=== PATIENT | male | born 1990 | race African-American/Black ===

== ENCOUNTER 2016-05-12 08:07 | Emergency (ER) | payer SELFPAY ==
[~2016-05-12] VITALS: Ht 185.4 cm; Wt 159.1 kg
[~2016-05-12 08:07] MED LIST: CIPROFLOXACN500 MG PO; METRONIDAZOL500 MG PO; NO HOME MEDS; PREVACID30 M2 OR; ULTRAM50 M1 PO; ZOFRAN ODT4 MG PO; ZOFRAN ODT8 MG PO; ZOFRAN4 MG/TAB PO
[2016-05-12 09:24] LABS: HEMATOCRIT 46.2 % (39.0-50.0); HEMOGLOBIN 15.1 g/dl (14.0-18.0); IMMATURE GRANULOCYTES 0.3 % (0.0-1.0); MEAN CORPUSCULAR HGB 27.5 pG CALC (26.0-32.0); MEAN CORPUSCULAR HGB CONC 32.7 g/L CALC (32.0-36.0); NEUT# 6.99 thou/uL (1.82-7.42); RED BLOOD COUNT 5.5 mill/uL (4.70-6.10); RED CELL DISTRI WIDTH 14.2 % (11.5-15.5)
[2016-05-12 09:33] LABS: ALBUMIN 4.5 g/dL (3.2-5.0); ALKALINE PHOSPHATASE 146 u/l (38-126); AMYLASE 62 u/l (30-110); ANION GAP 15 (6-22 (CALC)); BILIRUBIN, TOTAL 0.4 mg/dL (0.0-1.4); BUN 15 mg/dL (9-20); BUN/CREATININE RATIO 13 (12-20 (CALC)); CALCIUM 9.8 mg/dL (8.4-10.2); CARBON DIOXIDE 28 mmol/l (22-30); CHLORIDE 102 mmol/l (95-108); CREATININE 1.1 mg/dL (0.7-1.3); GFR > 60 ML/MIN (>=60 (CALC)); GFR FOR AFR.AMER. > 60 ML/MIN (>=60 (CALC)); GLUCOSE 123 mg/dL (75-110); LIPASE 135 u/l (23-300); POTASSIUM 4.1 mmol/l (3.5-5.1); SGOT/AST 28 u/l (17-59); SGPT/ALT 44 u/l (21-72); SODIUM 141 mmol/l (137-146); TOTAL PROTEIN 8.3 g/dL (6.3-8.2)
[2016-05-12] MEDS ORDERED: NEXIUM40 M1 PO (10:55)
[2016-05-12] MEDS ORDERED: ZOFRAN4 MG/TAB PO (10:55)
[2016-05-12 11:40] VITALS: BP 148/84
== END 2016-05-12 11:44 | disposition home or self-care (01) | DRG 392 ==
LOC: ED 08:07
PROVIDERS: Emergency Medicine
DX: R11.10 Vomiting, unspecified (principal); R19.7 Diarrhea, unspecified; R10.32 Left lower quadrant pain; R10.12 Left upper quadrant pain
CPT/HCPCS: Q9967

== ENCOUNTER 2021-03-27 09:14 | Emergency (ER) | payer SELFPAY ==
[~2021-03-27] VITALS: Ht 185.4 cm; Wt 163.6 kg
[~2021-03-27 09:14] MED LIST changes: +NEXIUM40 M1 PO
[2021-03-27] MEDS ORDERED: LOTRISONE EX (10:26)
[2021-03-27 10:27] LABS: HEMATOCRIT 47.4 % (39.0-50.0); HEMOGLOBIN 15.4 g/dl (14.0-18.0); IMMATURE GRANULOCYTES 0.2 % (0.0-5.0); MEAN CELL VOLUME 85.9 fL CALC (80.0-100.0); MEAN CORPUSCULAR HGB 27.9 pG CALC (26.0-32.0); MEAN CORPUSCULAR HGB CONC 32.5 g/dL CAL (32.0-36.0); NEUT# 4.18 thou/uL (1.82-7.42); RED BLOOD COUNT 5.52 mill/uL (4.70-6.10)
[2021-03-27 10:34] VITALS: BP 135/70
[2021-03-27 10:48] LABS: ALBUMIN 3.9 g/dL (3.2-5.0); ALKALINE PHOSPHATASE 92 u/l (38-126); ANION GAP 9 (6-22 (CALC)); BUN 15 mg/dL (9-20); BUN/CREATININE RATIO 14 (12-20 (CALC)); CARBON DIOXIDE 29 mmol/l (22-30); CHLORIDE 105 mmol/l (95-108); CREATININE 1.1 mg/dL (0.7-1.3); GFR > 60 ML/MIN (>=60 (CALC)); GFR FOR AFR.AMER. > 60 ML/MIN (>=60 (CALC)); POTASSIUM 4.1 mmol/l (3.5-5.1); SGOT/AST 33 u/l (17-59); SODIUM 137 mmol/l (137-146); TOTAL PROTEIN 7.3 g/dL (6.3-8.2)
[2021-03-27 10:50] LABS: BILIRUBIN, TOTAL 0.9 mg/dL (0.0-1.4)
== END 2021-03-27 10:39 | disposition home or self-care (01) | DRG 607 ==
LOC: ED 09:14
PROVIDERS: Emergency Medicine
DX: B37.2 Candidiasis of skin and nail (principal); F17.200 Nicotine dependence, unspecified, uncomplicated

== ENCOUNTER 2021-07-05 10:12 | Day surgery (SDC) | payer SELFPAY ==
[~2021-07-05] VITALS: Ht 208.3 cm; Wt 158.8 kg
[~2021-07-05 10:12] MED LIST changes: +LOTRISONE EX
[2021-07-05] MEDS ORDERED: PERCOCET 5/321 COMBO PO (12:43)
[2021-07-05 13:18] VITALS: BP 147/91
== END 2021-07-05 13:48 | disposition home or self-care (01) | DRG 572 ==
LOC: ORM 10:12
PROVIDERS: ATTEND Surgery
PROC: 0JB90ZZ Excision of Buttock Subcutaneous Tissue and Fascia, Open Approach (ICD-10-PCS; principal; 2021-07-05)
PROC: 0HB6XZZ Excision of Back Skin, External Approach (ICD-10-PCS; 2021-07-05)
DX: L05.91 Pilonidal cyst without abscess (principal); S31.000A Unspecified open wound of lower back and pelvis without penetration into retroperitoneum, initial encounter; X58.XXXA Exposure to other specified factors, initial encounter
CPT/HCPCS: C9290; J1100